=== PATIENT | male | born 1975 | race Caucasian/White ===

== ENCOUNTER 2023-03-05 10:29 | Emergency (ER) | payer BC ==
--- OUTSIDE RECORDS SUMMARY | 2023-03-05 10:32 | XMS REPORT | Continuity of Care Document ---
:1975 Author Organization [facility] t Address [address] [facility] [address] [place] [id number] Care Team Providers Name Role Phone KING GROSS Attending Clinician Unavailable Lab, Adc Fam Pob I Attending Clinician Unavailable King Gross PA-C Attending Clinician Doctor Unassigned, [place] Attending Clinician Unavailable Payers Payer Name Policy Type Policy Number Effective Date Expiration Date S [facility] [id number] 2019 00:00:00 Problems This patient has no known problems. Allergies, Adverse Reactions, Alerts Allergy Allergy Status Severity Reaction(s) Onset Inactive Treating Comm ents Source Name Type Date Date Clinician NO KNOWN Drug Active [facility] ALLERGIE Class ity of [facility] Social History Social Habit Start Date Stop Date Quantity Comments [facility] to [facility]2 [facility] Smoking Status Start Date Stop Date Source Unknown if ever [facility] Medications This patient has no known medications. Procedures This patient has no known procedures. Encounters Start End Encounter Admission Attending Care Care Encounter Source Date/Time Date/Time Type Type Clinicians Facility Department ID 2020-01-27 2020-01-27 Outpatient R RENATO [facility] [id number] Univers 18:20:00 18:20:00 KING [facility] 2020-01-27 2020-01-27 Laboratory Lab, [facility] Fam Pob I [facility] [id number] Univers 16:27:31 16:47:31 Only King Gross [id number] [id number] Blayne as Profcindaio [id number] Me dical nal [address] One 2020-01-27 2020-01-27 Letter Doctor KING [id number] Univers 00:00:00 00:00:00 (Out) Unassigned, LYDIA [id number] ity of [place] [facility] [id number] Blayne as [phone] [place] [id number] Branch Results This patient has no known results.
[2023-03-05] MEDS ORDERED: NA CHLORIDE 0.9% 1,000 ML ONE (11:05)
[2023-03-05] MEDS ORDERED: MORPHINE 4 MG/ML SYR ONE (11:05)
[2023-03-05] MEDS ORDERED: ONDANSETRON 4 MG/2 ML VIAL ONE (11:05)
[2023-03-05] MEDS ORDERED: FAMOTIDINE 20 MG/2 ML VIAL IV ONE (11:05)
[2023-03-05 11:31] LABS: RBC Red Blood Cell Count 5.37 M/uL (4.33-5.43)
[2023-03-05 11:32] LABS: Absolute Lymphocytes (CBC) 2.3 K/uL (0.7-4.9); MCV 87.5 fL (80-100); MPV 8.6 fL (7.6-11.3); Platelets 255 thou/uL (152-406)
[2023-03-05 11:38] LABS: Albumin 3.2 g/dL (3.4-5.0); Bilirubin Total 0.6 mg/dL (0.2-1.0); Protein, Total 7.7 g/dL (6.4-8.2)
--- NOTE | 2023-03-05 11:44 | RAD REPORT ---
EXAM DESCRIPTION: CT - Abdomen Pelvis W Contrast - 03/05/2023 11:17 am CLINICAL HISTORY: ABD PAIN COMPARISON: No comparisons TECHNIQUE: Thin cut axial CT imaging of the abdomen and pelvis was performed following intravenous a dministration of 100 mL Isovue 300. Multiplanar reformats were generated and reviewed. All CT scans are performed using dose optimization technique as appropriate and may include automated exposure control or mA/KV adjustment according to patient size. FINDINGS: No suspicious findings in the lung bases. The liver shows diffuse parenchymal hypoattenuation suggesting steatosis. Spleen, adrenal glands, and pancreas show no suspicious findings. Gallbladder and biliary tree are also without suspicious findi ng. Symmetric renal function is seen with no hydronephrosis or suspicious renal mass. No dilated bowel loops. Long segment of bowel wall thickening involving the distal ileum, less pronou nced or possibly sparing the terminal ileum, with adjacent fat stranding. Trace free fluid in the pel vis. No free air, fluid collections, or inflammatory stranding. No hernia, mass or bulky lymphadenopa thy. The urinary bladder is without significant finding. No suspicious bony findings. IMPRESSION: Long segment bowel wall thickening involving the distal ileum, etiologies could include infectious or inflammatory enteritis.
[2023-03-05] MEDS ORDERED: KETOROLAC 30 MG/ML INJ ONE (13:03)
[2023-03-05] MEDS ORDERED: CIPROFLOXACIN 400mg IV 400 MG/200 ML BAG IV ONE (13:04)
[2023-03-05] MEDS ORDERED: INSULIN REGULAR (HUMAN) 100 UNIT/ML ONE (13:04)
[2023-03-05] MEDS ORDERED: METRONIDAZOLE 500mg IVPB 500 MG/100 ML BAG IV ONE (13:04)
--- NOTE | 2023-03-05 13:08 | EDPHYS ---
Physician Documentation [facility] Name: Hermelindo Butcher Age: 47 yrs Sex: Male : 1975 Arrival Date: 03/05/2023 Time: 10:29 Bed 7 Private MD: ED Physician DanikaHermelindo HPI: 03/05 11:07 This 47 yrs old Male presents to ER via Ambulatory with complaints of Abdominal Pain. kb 11:07 Patient is a 47-year-old male with no medical history who presents for diffuse kb abdominal pain that that started 4 days ago. States he had diarrhea on the first day but has not had any since. Denies fever, nausea, vomiting. Reports tenderness to right lower quadrant.. Historical: - Allergies: 10:38 PENICILLINS; iw - Home Meds: 10:38 None [Active]; iw - PMHx: 10:38 None; iw - PSHx: 10:38 Appendectomy; iw - Immunization history:: Adult Immunizations . - Social history:: Smoking status: Patient reports the use of cigarette tobacco products. ROS: 11:04 Constitutional: Negative for fever, chills, and weight loss, kb 11:04 Abdomen/GI: Positive for abdominal pain, diarrhea, 11:04 All other systems are negative, Exam: 11:07 Head/Face: Normocephalic, atraumatic. ENT: Moist Mucous membranes Cardiovascular: kb Regular rate Respiratory: Respirations even and unlabored. No increased work of breathing. Talking in full sentences Abdomen/GI: Soft, non-tender. No distention Skin: Warm, dry with normal turgor. Normal color. MS/ Extremity: Pulses equal, no cyanosis. Neurovascular intact. Full, normal range of motion. Neuro: Awake and alert, GCS 15, oriented to person, place, time, and situation. Moves all extremities. Normal gait. 11:07 Constitutional: The patient appears alert, awake, uncomfortable, Vital Signs: 10:38 BP 172 / 98; Pulse 80; Resp 16; Temp 98.1; Pulse Ox 97% ; Weight 172.37 kg; Height 6 iw ft. 3 in. ; Pain 10/10; 11:43 BP 165 / 90; Pulse 81; Resp 18 S; Pulse Ox 99% on R/A; kc6 13:04 BP 163 / 90; Pulse 85; Resp 18 S; Pulse Ox 100% on R/A; kc6 14:00 BP 167 / 91; Pulse 71; Resp 18; Pulse Ox 99% on R/A; db 10:38 Body Mass Index 47.50 (172.37 kg, 190.5 cm) iw 10:38 Pain Scale: Adult iw MDM: 10:34 Patient medically screened. kb 12:21 Differential diagnosis: bowel obstruction, diverticulitis, gastritis, non-specific abd kb pain, pancreatitis, colitis. Data reviewed: vital signs, nurses notes. Counseling: I had a detailed discussion with the patient and/or guardian regarding the historical points, exam findings, and any diagnostic results supporting the discharge/admit diagnosis, lab results, radiology results, the need for outpatient follow up, a family practitioner, to return to the emergency department if symptoms worsen or persist or if there are any questions or concerns that arise at home. 13:09 ED course: Discussed results with pt. Pt denied any medical history, but now reports he kb does have "the diabetes that you take a pill for." . 03/05 10:46 Order name: CBC with Diff; Complete Time: 11:41 kb 03/05 10:46 Order name: CMP; Complete Time: 11:41 kb 03/05 10:46 Order name: Lipase; Complete Time: 11:41 kb 03/05 13:05 Order name: Glucose, Ancillary Testing; Complete Time: 13:07 EDMS 03/05 14:19 Order name: Glucose, Ancillary Testing; Complete Time: 14:20 EDMS 03/05 10:46 Order name: CT Abd/Pelvis - IV Contrast Only; Complete Time: 11:47 kb 03/05 10:46 Order name: IV Saline Lock; Complete Time: 11:09 kb 03/05 10:46 Order name: Labs collected and sent; Complete Time: 11:09 kb Administered Medications: 11:09 Drug: NS 0.9% IV 1000 ml IV at 1 bolus Per protocol; 1000 mL bolus Route: IV; Rate: 1 kc6 bolus; Site: right antecubital; 14:04 Follow up: Response: No adverse reaction; IV Status: Completed infusion; IV Intake: kc6 1000ml 11:09 Drug: Famotidine IVP 20 mg IVP once; dilute with 10 mL 0.9% NaCl; give over 2 minutes kc6 Route: IVP; Site: right antecubital; 11:43 Follow up: Response: No adverse reaction kc6 11:09 Drug: Ondansetron IVP 4 mg IVP once; over 2 minutes Route: IVP; Site: right antecubital;kc6 11:43 Follow up: Response: No adverse reaction kc6 11:09 Drug: morphine IVP or IV 4 mg IVP once over 4 mins Route: IVP; Infused Over: 4 mins; kc6 Site: right antecubital; 11:43 Follow up: Response: No adverse reaction; Pain is decreased; RASS: Alert and Calm (0) kc6 13:03 Drug: Insulin Regular Human IVP 5 units IVP once {Co-Signature: kc6 (Kamryn Blanc RN).} Route: IVP; Site: right antecubital; 14:04 Follow up: Response: No adverse reaction; Blood sugar is lowered kc6 13:03 Drug: Ciprofloxacin IVPB 400 mg 200 ml IVPB once over 60 mins Volume: 200 ml; Route: kc6 IVPB; Infused Over: 60 mins; Site: right antecubital; 14:00 Follow up: IV Status: Completed infusion db 13:03 Drug: metroNIDAZOLE IVPB 500 mg 100 ml IVPB at 200 ml/hr once over 30 mins Volume: 100 kc6 ml; Route: IVPB; Rate: 200 ml/hr; Infused Over: 30 mins; Site: right antecubital; 14:04 Follow up: Response: No adverse reaction; IV Status: Completed infusion; IV Intake: kc6 100ml 13:03 Drug: Ketorolac IVP 15 mg IVP once Route: IVP; Site: right antecubital; kc6 14:04 Follow up: Response: No adverse reaction; Pain is decreased kc6 Point of Care Testing: Blood Glucose: 14:07 Blood Glucose: 262 mg/dL; db Ranges: Critical Glucose Levels:Adult <50 mg/dl or >400 mg/dl <40 mg/dl or >180 mg/dl Disposition: 15:30 I was immediately available on-site in the Emergency Department for consultation in the wa3 care of the patient. Disposition Summary: 03/05/23 13:07 Discharge Ordered Notes: Location: Home kb Condition: Stable kb Diagnosis - Colitis kb - Diabetes mellitus due to underlying condition with hyperglycemia kb Followup: kb - With: Emergency Department - When: As needed - Reason: Worsening of condition Followup: kb - With: Private Physician - When: 2 - 3 days - Reason: Recheck today's complaints, Continuance of care, Re-evaluation by your physician Discharge Instructions: - Discharge Summary Sheet kb - Type 2 Diabetes Mellitus, Diagnosis, Adult, [id number] kb - Colitis kb Forms: - Work release form kb - Medication Reconciliation Form kb - Thank You Letter kb - Antibiotic Education kb - Prescription Opioid Use kb - Patient Portal Instructions kb - Leadership Thank You Letter kb Prescriptions: - Cipro 500 mg Oral Tablet - take 1 tablet ORAL route every 12 hours for 10 days; 20 tablet; Refills: 0, kb Product Selection Permitted - Flagyl 500 mg Oral Tablet - take 1 tablet ORAL route every 8 hours for 10 days; 30 tablet; Refills: 0, kb Product Selection Permitted - Ibuprofen 800 mg Oral Tablet - take 1 tablet ORAL route every 8 hours As needed take with food; 30 tablet; kb Refills: 0, Product Selection Permitted Signatures: Dispatcher [employer] Danielle Velásquez, UNIX ADMINISTRATOR-C UNIX ADMINISTRATOR-Ckb Michelle Bassett, RN RN iw Hermelindo Garnica, DO ms3 Kamryn Blanc RN RN kc6 Olya Muñoz RN RN db Kamryn Blanc RN kc6
--- NOTE | 2023-03-05 13:08 | ER ---
Nurse's Notes [facility] Name: Hermelindo Butcher Age: 47 yrs Sex: Male : 1975 Arrival Date: 03/05/2023 Time: 10:29 Bed 7 Private MD: Diagnosis: Colitis;Diabetes mellitus due to underlying condition with hyperglycemia Presentation: 03/05 10:37 Chief complaint: Patient states: upper abd pain that radiates to right groin since iw Saturday , sharp pain , +diarrhea , no vomiting. Coronavirus screen: Client presents with at least one sign or symptom that may indicate coronavirus-19. Ebola Screen: Patient negative for fever greater than or equal to 101.5 degrees Fahrenheit, and additional compatible Ebola Virus Disease symptoms Patient denies exposure to infectious person. Patient denies travel to an Ebola-affected area in the 21 days before illness onset. No symptoms or risks identified at this time. Initial Sepsis Screen: Does the patient meet any 2 criteria? No. Patient's initial sepsis screen is negative. Does the patient have a suspected source of infection? No. Patient's initial sepsis screen is negative. Risk Assessment: Do you want to hurt yourself or someone else? Patient reports no desire to harm self or others. Onset of symptoms was March 02, 2023. 10:37 Method Of Arrival: Ambulatory iw 10:37 Acuity: KAYODE 3 iw Historical: - Allergies: 10:38 PENICILLINS; iw - Home Meds: 10:38 None [Active]; iw - PMHx: 10:38 None; iw - PSHx: 10:38 Appendectomy; iw - Immunization history:: Adult Immunizations . - Social history:: Smoking status: Patient reports the use of cigarette tobacco products. Screenin:09 [facility] ED Fall Risk Assessment (Adult) History of falling in the last 3 months, kc6 including since admission No falls in past 3 months (0 pts) Confusion or Disorientation No (0 pts) Intoxicated or Sedated No (0 pts) Impaired Gait No (0 pts) Mobility Assist Device Used No (0 pt) Altered Elimination No (0 pt) Score/Fall Risk Level 0 - 2 = Low Risk. Abuse screen: Denies threats or abuse. Denies injuries from another. Nutritional screening: No deficits noted. Tuberculosis screening: No symptoms or risk factors identified. Assessment: 10:59 Reassessment: Patient appears in no apparent distress at this time. Patient and/or db family updated on plan of care and expected duration. Pain level reassessed. Patient is alert, oriented x 3, equal unlabored respirations, skin warm/dry/pink. General: Appears in no apparent distress. comfortable, Behavior is calm, cooperative. Pain: Complains of pain in abdomen. Neuro: Level of Consciousness is awake, alert, obeys commands, Oriented to person, place, time, situation. GI:. 11:43 Reassessment: Patient appears in no apparent distress at this time. No changes from kc6 previously documented assessment. Patient and/or family updated on plan of care and expected duration. Pain level reassessed. Patient is alert, oriented x 3, equal unlabored respirations, skin warm/dry/pink. 13:03 Reassessment: Patient appears in no apparent distress at this time. No changes from kc6 previously documented assessment. Patient and/or family updated on plan of care and expected duration. Pain level reassessed. Patient is alert, oriented x 3, equal unlabored respirations, skin warm/dry/pink. 13:10 Reassessment: d/c pending antibiotic completion. kc6 14:00 Reassessment: Patient appears in no apparent distress at this time. Patient and/or db family updated on plan of care and expected duration. Pain level reassessed. Patient is alert, oriented x 3, equal unlabored respirations, skin warm/dry/pink. Patient states feeling better. Patient states symptoms have improved. General: Appears in no apparent distress. comfortable, Behavior is calm, cooperative. Vital Signs: 10:38 BP 172 / 98; Pulse 80; Resp 16; Temp 98.1; Pulse Ox 97% ; Weight 172.37 kg; Height 6 iw ft. 3 in. ; Pain 10/10; 11:43 BP 165 / 90; Pulse 81; Resp 18 S; Pulse Ox 99% on R/A; kc6 13:04 BP 163 / 90; Pulse 85; Resp 18 S; Pulse Ox 100% on R/A; kc6 14:00 BP 167 / 91; Pulse 71; Resp 18; Pulse Ox 99% on R/A; db 10:38 Body Mass Index 47.50 (172.37 kg, 190.5 cm) iw 10:38 Pain Scale: Adult iw ED Course: 10:32 Patient arrived in ED. mr 10:34 Danielle Walsh, ADIS [facility]. kb 10:34 Hermelindo Garnica DO is Attending Physician. kb 10:38 Triage completed. iw 10:40 Arm band placed on. iw 10:47 Kamryn Blanc, RN is Primary Nurse. kc6 11:09 Inserted saline lock: 20 gauge in right antecubital area, using aseptic technique. kc6 Blood collected. Patient maintains SpO2 saturation greater than 95% on room air. 11:10 Patient has correct armband on for positive identification. Bed in low position. Call kc6 light in reach. Side rails up X 1. Client placed on continuous cardiac and pulse oximetry monitoring. NIBP monitoring applied. 11:18 CT Abd/Pelvis - IV Contrast Only In Process Unspecified. EDMS 14:21 Provided Education on: DISCHARGE. db 14:21 No provider procedures requiring assistance completed. IV discontinued, intact, db bleeding controlled, No redness/swelling at site. Administered Medications: 11:09 Drug: NS 0.9% IV 1000 ml IV at 1 bolus Per protocol; 1000 mL bolus Route: IV; Rate: 1 kc6 bolus; Site: right antecubital; 14:04 Follow up: Response: No adverse reaction; IV Status: Completed infusion; IV Intake: kc6 1000ml 11:09 Drug: Famotidine IVP 20 mg IVP once; dilute with 10 mL 0.9% NaCl; give over 2 minutes kc6 Route: IVP; Site: right antecubital; 11:43 Follow up: Response: No adverse reaction kc6 11:09 Drug: Ondansetron IVP 4 mg IVP once; over 2 minutes Route: IVP; Site: right antecubital;kc6 11:43 Follow up: Response: No adverse reaction kc6 11:09 Drug: morphine IVP or IV 4 mg IVP once over 4 mins Route: IVP; Infused Over: 4 mins; kc6 Site: right antecubital; 11:43 Follow up: Response: No adverse reaction; Pain is decreased; RASS: Alert and Calm (0) kc6 13:03 Drug: Insulin Regular Human IVP 5 units IVP once {Co-Signature: kc6 (Kamryn Blanc db RN).} Route: IVP; Site: right antecubital; 14:04 Follow up: Response: No adverse reaction; Blood sugar is lowered kc6 13:03 Drug: Ciprofloxacin IVPB 400 mg 200 ml IVPB once over 60 mins Volume: 200 ml; Route: kc6 IVPB; Infused Over: 60 mins; Site: right antecubital; 14:00 Follow up: IV Status: Completed infusion db 13:03 Drug: metroNIDAZOLE IVPB 500 mg 100 ml IVPB at 200 ml/hr once over 30 mins Volume: 100 kc6 ml; Route: IVPB; Rate: 200 ml/hr; Infused Over: 30 mins; Site: right antecubital; 14:04 Follow up: Response: No adverse reaction; IV Status: Completed infusion; IV Intake: kc6 100ml 13:03 Drug: Ketorolac IVP 15 mg IVP once Route: IVP; Site: right antecubital; kc6 14:04 Follow up: Response: No adverse reaction; Pain is decreased kc6 Medication: 14:21 VIS not applicable for this client. db Point of Care Testing: Blood Glucose: 14:07 Blood Glucose: 262 mg/dL; db Ranges: Intake: 14:04 IV: 1000ml; Total: 1000ml. kc6 14:04 IV: 100ml; Total: 1100ml. kc6 Outcome: 13:07 Discharge ordered by . eduarda 14:21 Discharged to home ambulatory, db 14:21 Condition: stable 14:21 Discharge instructions given to patient, Instructed on discharge instructions, follow up and referral plans. Prescriptions given X 3, 14:23 Patient left the ED. db Signatures: Dispatcher [employer] EDMI Danielle Walsh, ALLA-C DIRECTOR CLIENT SERVICES-Bere Bardales, [facility] mr Michelle Bassett, Kamryn Fernández RN, RN RN kc6 Olya Muñoz, Kamryn Alfaro RN, RN kc6
[2023-03-05 14:29] VITALS: TEMP 98.1
[2023-03-05 14:32] VITALS: BP 167/91; O2SAT 99
== END 2023-03-05 14:23 | disposition home or self-care (01) ==
LOC: ER 10:29
DX: K52.9 Noninfective gastroenteritis and colitis, unspecified (principal); E11.65 Type 2 diabetes mellitus with hyperglycemia; Z88.0 Allergy status to penicillin
CPT/HCPCS: 96365; 96361; 96368; 85025; 36415; 82947 ×2; 83690; 80053; 74177; 96375; 99285; Q9967; J1815; J2405; J0744; J7030

== ENCOUNTER 2024-03-23 20:08 | Inpatient (IN) | payer BC ==
--- OUTSIDE RECORDS SUMMARY | 2024-03-23 20:11 | XMS REPORT | Continuity of Care Document ---
Author Name Unknown Address [address] [facility] [address] [place] [address] [facility] Address [address] [place] [address] Care Team Providers Care Psychological Operations Specialist Name Role Phone KING AJ Attending Clinician Unavailable Lab, [facility] Pokarla I Attending Clinician Unavailab King Flores PA-C Attending Clinician [phone] Doctor Unassigned, [place] Attending Clinician U navailable Payers Payer Name Policy Type Policy Number Effective Date Expirati on Date Source [facility] [id number] 2019 00:00:00 Allergies, Adverse Reactions, Alerts Allergy Name Allergy Type Status Severity Reaction(s) Onset Date Inactive Date Treating Clinician Comments Source NO KNOWN ALLERGIE S Drug Class Active [facility] Social History Social Habit Start Date Stop Date Quantity Comments Source Sex Assigned At [facility] Exposure to SARS-CoV-2 (event) Yes [facility] Smoking Status Start Date Stop Date Source Unknown if ever smoked Unive [facility] Encounters Start Date/Time End Date/Time Encounter Type Admission Type Attending Clinicians Care Facility Care Department Encounter ID Source 2020-01-27 18:20:00 2020-01-27 18:20:00 Outpatient KING [facility] [id number] [facility] 2020-01-27 16:27:31 2020-01-27 16:47:31 Laboratory Only Lab, Adc Fam Pob I King Aj [facility] Office [facility] One [id number] [facility] 2020-01-27 00:00:00 2020-01-27 00:00:00 Letter (Out) Doctor Unassigned, [place] [facility] [id number] [facility]
[2024-03-23] MEDS ORDERED: MORPHINE 4 MG/ML SYR ONE (20:37)
[2024-03-23] MEDS ORDERED: MORPHINE 2 MG/ML SYR ONE (20:37)
[2024-03-23] MEDS ORDERED: KETOROLAC 30 MG/ML INJ ONE (20:37)
[2024-03-23] MEDS ORDERED: NA CHLORIDE 0.9% 2,000 ML ONE (20:38)
[2024-03-23] MEDS ORDERED: ONDANSETRON 4 MG/2 ML VIAL ONE (20:38)
[2024-03-23 21:50] LABS: Absolute Basophils 0.1 K/uL (0-0.5); Absolute Eosinophils 0.2 K/uL (0-0.5); Absolute Lymphocytes (CBC) 2.5 K/uL (0.7-4.9); Absolute Monocytes 0.8 K/uL (0.1-1.3); Absolute Neutrophil 6.8 K/uL (1.8-8.0); Basophils % 0.5 % (0-1.3); Eosinophils % 2.1 % (0-4.4); Hematocrit 45.1 % (39.6-49.0); Hemoglobin 15.1 g/dL (13.6-17.9); MCH 29.5 pg (27.0-35.0); MCHC 33.4 g/dL (32.0-36.0); MCV 88.4 fL (80-100); MPV 8.1 fL (7.6-11.3); Monocytes % 7.7 % (3.3-12.3); Neutrophils % 65.7 % (41.7-73.7); Nucleated Red Blood Cells % 0.1 % (0-0); Platelets 239 thou/uL (152-406); Red Cell Distribution Width 13.3 % (12.1-15.2)
[2024-03-23 22:07] LABS: Albumin/Globulin Ratio 0.9 (1.1-1.8); Anion Gap 8.7 mEq/L (5.0-15.0); Bilirubin Total 0.7 mg/dL (0.2-1.0); Globulin 3.4 g/dL (2.3-3.5); Potassium 3.7 mEq/L (3.5-5.1); Protein, Total 6.4 g/dL (6.4-8.2)
[2024-03-23 22:11] LABS: Troponin High Sensitivity 11.6 pg/mL (<58.9)
--- NOTE | 2024-03-24 00:18 | RAD REPORT ---
EXAM DESCRIPTION: Chest Abdomen Pelvis W Cont CLINICAL HISTORY: 48 years Male, ABDOMINAL DISTENTION TECHNIQUE: Helical CT axial images are obtained from the thoracic inlet to the pubic symphysis with I V contrast. No oral contrast was administered. Multiplanar reconstruction. This exam was performed according to our departmental dose-optimization program, which includes automated exposure control, adjustment of the mA and/or kV according to patient size and/or use of iterative reconstruction technique. COMPARISON: CT abdomen pelvis 03/05/2023 FINDINGS: CHEST: LUNGS: A 6 mm calcified granuloma right apex. A 3 mm calcified granuloma left lower lobe. No consol idation or atelectasis. No pulmonary masses or suspicious nodules. MEDIASTINUM: Calcified mediastinal and right hilar lymph nodes. No abnormally enlarged mediastinal or hilar lymph nodes. PLEURA: No pleural effusion. No pneumothorax. CARDIAC: Normal heart size. No pericardial effusion. VASCULAR: Thoracic aorta is normal in caliber without aneurysm. The pulmonary vasculature demonstrate s no significant dilatation. CHEST WALL: Chest wall is intact. No abnormal axillary lymphadenopathy. ABDOMEN/PELVIS: LIVER: Hepatomegaly. Mild diffuse decreased attenuation. No focal masses. Mild periportal lymphaden opathy, stable. HEPATOBILIARY: Normal-appearing gallbladder. No intra- or extrahepatic ductal dilatation. SPLEEN: Normal size. PANCREAS: Normal size and contour. No focal mass. ADRENAL GLANDS: Normal size. No adrenal masses. KIDNEYS: Bilateral kidneys are normal in size without obstructing calculi or hydronephrosis. No nep hrolithiasis. No significant cysts are present. BOWEL AND MESENTERY: Moderate wall thickening of the terminal ileum and distal ileal loops with moder ate perienteric and perimesenteric fat stranding. Trace ascites. Remainder of small bowel is within normal limits. No large bowel dilatation. No colonic diverticulosis. The appendix is not identifie d. No abnormal mesenteric lymphadenopathy. No pneumoperitoneum. RETROPERITONEUM: Normal caliber abdominal aorta without aneurysm. No abnormal retroperitoneal lymphad enopathy. PELVIS: Urinary bladder is unremarkable. Normal-sized prostate gland. ABDOMINAL WALL: The abdominal wall is intact. BONES: No suspicious osseous lytic or blastic lesions seen. IMPRESSION: 1. Moderate wall thickening of the terminal ileum and distal ileal loops with moderate perienteric fat stranding. Trace ascites. Findings are consistent with an infectious or inflammatory enteritis. Rule out Crohn's disease. Patient with similar presentation 03/05/2023. 2. Hepatomegaly with mild hepatic steatosis. 3. Mild periportal lymphadenopathy, stable. 4. No acute cardiopulmonary disease. 5. Old granulomatous disease. Electronically signed by: Jorge Cordova MD 03/24/2024 12:04 AM [facility] N Due to temporary technical issues with the PACS/Ketto reporting system, reports are being mel d by the in-house radiologist without review as a courtesy to ensure prompt reporting the interpreting radiologist is fully responsible for the content of the report. Transcribed Date/Time: 03/24/2024 12:18 AM
--- NOTE | 2024-03-24 01:08 | ER ---
Nurse's Notes [facility] Name: Hermelindo Butcher Age: 48 yrs Sex: Male : 1975 Arrival Date: 03/23/2024 Time: 20:08 Bed 6 Private MD: Diagnosis: Acute enteritis, acute terminal ileitis, diffuse abdominal pain Presentation: 03/23 20:30 Chief complaint: Patient states: I have this sharp lower abd pain that radiates up jhaveri bm8 through me since saturday. Coronavirus screen: At this time, the client does not indicate any symptoms associated with coronavirus-19. Ebola Screen: Patient negative for fever greater than or equal to 101.5 degrees Fahrenheit, and additional compatible Ebola Virus Disease symptoms Patient denies exposure to infectious person. Patient denies travel to an Ebola-affected area in the 21 days before illness onset. No symptoms or risks identified at this time. Initial Sepsis Screen: Does the patient meet any 2 criteria? No. Patient's initial sepsis screen is negative. Does the patient have a suspected source of infection? No. Patient's initial sepsis screen is negative. Risk Assessment: Do you want to hurt yourself or someone else? Patient reports no desire to harm self or others. Onset of symptoms was March 16, 2024. 20:30 Method Of Arrival: Ambulatory bm8 20:30 Acuity: KAYODE 3 bm8 Triage Assessment: 20:32 General: Appears distressed, uncomfortable, Behavior is calm, cooperative, appropriate bm8 for age. Pain: Complains of pain in suprapubic area Pain radiates to abdomen Pain currently is 10 out of 10 on a pain scale. Quality of pain is described as sharp, Pain began 1 week. EENT: No deficits noted. No signs and/or symptoms were reported regarding the EENT system. Neuro: No deficits noted. Level of Consciousness is awake, alert, obeys commands, Oriented to person, place, time, situation, Appropriate for age. Cardiovascular: Denies chest pain, Heart tones S1 S2 present Capillary refill < 3 seconds in bilateral fingers Patient's skin is warm and dry. Respiratory: Airway is patent Trachea midline Respiratory effort is even, unlabored, Respiratory pattern is regular, symmetrical, Breath sounds are clear bilaterally. GI: Abdomen is round non-distended, Bowel sounds present X 4 quads. Abdomen is tender to palpation in suprapubic area Reports lower abdominal pain, nausea, Pain is 10 out of 10 on a pain scale. : No signs and/or symptoms were reported regarding the genitourinary system. Derm: No signs and/or symptoms reported regarding the dermatologic system. Musculoskeletal: No signs and/or symptoms reported regarding the musculoskeletal system. Historical: - Allergies: 20:32 PENICILLINS; bm8 - Home Meds: 20:32 None [Active]; bm8 - PMHx: 20:32 None; bm8 - PSHx: 20:32 Appendectomy; bm8 - Immunization history:: Adult Immunizations up to date. - Infectious Disease History:: Denies. - Social history:: Smoking status: Patient reports the use of cigarette tobacco products, Patient uses alcohol, Patient/guardian denies using street drugs. - Family history:: not pertinent. Screenin/17 07:15 [facility] ED Fall Risk Assessment (Adult) History of falling in the last 3 months, ko1 including since admission No falls in past 3 months (0 pts) Confusion or Disorientation No (0 pts) Intoxicated or Sedated No (0 pts) Impaired Gait No (0 pts) Mobility Assist Device Used No (0 pt) Altered Elimination No (0 pt) Score/Fall Risk Level 0 - 2 = Low Risk Oriented to surroundings, Maintained a safe environment, Educated pt \T\ family on fall prevention, incl call for assistance when getting out of bed, Assessed \T\ reinforced patient's understanding of fall precautions, Provided non-skid footwear, Hourly rounding (assess needs \T\ fall precautionary measures) done. Abuse screen: Denies threats or abuse. Denies injuries from another. Nutritional screening: No deficits noted. Tuberculosis screening: No symptoms or risk factors identified. Assessment: 03/23 20:45 Reassessment: Patient and/or family updated on plan of care and expected duration. Pain br2 level reassessed. Patient is alert, oriented x 3, equal unlabored respirations, skin warm/dry/pink. General: Appears in no apparent distress. comfortable, Behavior is calm, cooperative. Pain: Complains of pain in right lower quadrant and left lower quadrant Pain does not radiate. Pain at worst was 10 out of 10 on a pain scale. Neuro: Level of Consciousness is awake, alert, Oriented to person, place, time, situation. Cardiovascular: Capillary refill < 3 seconds. Respiratory: Airway is patent Respiratory effort is even, unlabored, Respiratory pattern is regular, symmetrical. GI: Reports lower abdominal pain, Pain is 10 out of 10 on a pain scale. : No signs and/or symptoms were reported regarding the genitourinary system. EENT: No signs and/or symptoms were reported regarding the EENT system. Derm: No signs and/or symptoms reported regarding the dermatologic system. Musculoskeletal: No signs and/or symptoms reported regarding the musculoskeletal system. 21:13 Reassessment: Patient and/or family updated on plan of care and expected duration. Pain br2 level reassessed. Patient is alert, oriented x 3, equal unlabored respirations, skin warm/dry/pink. Patient denies pain at this time. Patient states feeling better. Patient states symptoms have improved. 22:48 Reassessment: Patient and/or family updated on plan of care and expected duration. Pain br2 level reassessed. Patient is alert, oriented x 3, equal unlabored respirations, skin warm/dry/pink. Patient denies pain at this time. Patient states feeling better. Patient states symptoms have improved. 23:40 Reassessment: No changes from previously documented assessment. Patient and/or family br2 updated on plan of care and expected duration. Pain level reassessed. Patient is alert, oriented x 3, equal unlabored respirations, skin warm/dry/pink. Patient denies pain at this time. 03/24 00:36 Reassessment: No changes from previously documented assessment. Patient and/or family br2 updated on plan of care and expected duration. Pain level reassessed. Patient is alert, oriented x 3, equal unlabored respirations, skin warm/dry/pink. Patient denies pain at this time. 02:55 Reassessment: No changes from previously documented assessment. Patient and/or family br2 updated on plan of care and expected duration. Pain level reassessed. Patient is alert, oriented x 3, equal unlabored respirations, skin warm/dry/pink. Patient states feeling better. Patient states symptoms have improved. Vital Signs: 03/23 20:30 BP 186 / 106; Pulse 89; Resp 18; Temp 98.7; Pulse Ox 97% ; Weight 158.76 kg; Height 6 bm8 ft. 3 in. ; Pain 10/10; 21:13 BP 162 / 91; Pulse 98; Resp 18; Pulse Ox 97% on R/A; Pain 0/10; br2 22:39 BP 145 / 70; Pulse 85; Resp 18 S; Pulse Ox 99% on R/A; Pain 0/10; br2 03/24 00:36 BP 171 / 81; Pulse 73; Resp 18; Pulse Ox 96% on R/A; br2 02:55 BP 121 / 60; Pulse 67; Resp 18; Pulse Ox 93% on R/A; br2 03:30 BP 121 / 64; Pulse 63; Resp 18; Pulse Ox 96% ; br2 04:30 BP 141 / 88; Pulse 58; Resp 18; Pulse Ox 95% on R/A; br2 05:48 BP 124 / 79; Pulse 61; Resp 16 S; Pulse Ox 94% on R/A; br2 03/23 20:30 Body Mass Index 43.75 (158.76 kg, 190.5 cm) bm8 03/23 20:30 Pain Scale: Adult bm8 21:13 Pain Scale: Adult br2 22:39 Pain Scale: Adult br2 Cesario Coma Score: 03/25 03:08 Eye Response: spontaneous(4). Motor Response: obeys commands(6). Verbal Response: sp4 oriented(5). Total: 15. ED Course: 03/23 20:09 Patient arrived in ED. im 20:18 John Santiago MD is Attending Physician. sp4 20:30 Eric Rogers, RN is Primary Nurse. bm8 20:32 Triage completed. bm8 20:32 Arm band placed on right wrist. bm8 20:35 Inserted saline lock: 20 gauge in right antecubital area, using aseptic technique. br2 Blood collected. Flushed with 10 mL NS. 21:08 BNP Sent. br2 21:08 Troponin High Sensitivity Sent. br2 21:08 Lipase Sent. br2 21:08 CBC with Diff Sent. br2 21:09 CMP Sent. br2 22:43 CT Chest, Abdomen, Pelvis - W/Contrast In Process Unspecified. EDMS 03/24 01:07 Shaun Claudio MD is Hospitalizing Provider. sp4 06:55 Hemoglobin A1c Sent. br2 07:15 Patient has correct armband on for positive identification. Allergy band placed. Bed in ko1 low position. Call light in reach. Side rails up X2. Provided Education on: admit. 07:15 No provider procedures requiring assistance completed. Patient admitted, IV remains in ko1 place. Administered Medications: 03/23 20:43 Drug: morphine IVP or IV 6 mg IVP once over 4 mins Route: IVP; Infused Over: 4 mins; bm8 Site: right antecubital; 21:15 Follow up: Response: No adverse reaction br2 20:43 Drug: Ondansetron IVP 8 mg IVP once; over 2 minutes Route: IVP; Site: right antecubital;bm8 21:15 Follow up: Response: No adverse reaction br2 20:43 Drug: Ketorolac IVP 30 mg IVP once Route: IVP; Site: right antecubital; bm8 21:15 Follow up: Response: No adverse reaction br2 20:43 Drug: NS 0.9% IV 1000 ml IV at 1 bolus Per protocol; to be given as a bolus over 60 bm8 minutes Route: IV; Rate: 1 bolus; Site: right antecubital; 21:45 Follow up: Response: No adverse reaction; IV Status: Completed infusion; IV Intake: br2 1000ml 20:43 Drug: NS 0.9% IV 1000 ml IV at 125 bolus Per protocol; to be given as a bolus over 60 bm8 minutes Route: IV; Rate: 125 bolus; Site: right antecubital; 21:45 Follow up: Response: No adverse reaction; IV Status: Completed infusion; IV Intake: br2 1000ml 03/24 02:02 Drug: MethylPrednisoLONE IVP 125 mg IVP once Route: IVP; Site: right antecubital; br2 02:30 Follow up: Response: No adverse reaction br2 02:02 Drug: Rocephin - Rocephin (cefTRIAXone) IVPB 1 grams IVPB once over 30 mins; (mix in 50 br2 mL NS) Route: IVPB; Infused Over: 30 mins; Site: right antecubital; 02:30 Follow up: IV Status: Completed infusion; IV Intake: 50ml br2 02:02 Drug: metroNIDAZOLE IVPB 500 mg 100 ml IVPB at 200 ml/hr once over 30 mins Volume: 100 br2 ml; Route: IVPB; Rate: 200 ml/hr; Infused Over: 30 mins; Site: right antecubital; 02:30 Follow up: Response: No adverse reaction; IV Status: Completed infusion; IV Intake: br2 100ml 02:03 Drug: morphine IVP or IV 4 mg IVP once over 4 mins Route: IVP; Infused Over: 4 mins; br2 Site: right antecubital; 02:30 Follow up: Response: No adverse reaction br2 02:03 Drug: metoCLOPramide IVP 10 mg IVP once; over 1 to 2 minutes Route: IVP; Site: right br2 antecubital; 02:30 Follow up: Response: No adverse reaction br2 07:03 Drug: morphine IVP or IV 6 mg IVP once over 4 mins Route: IVP; Infused Over: 4 mins; br2 Site: right antecubital; 07:30 Follow up: Response: No adverse reaction; Pain is decreased; RASS: Alert and Calm (0) kc6 Medication: 11:07 VIS not applicable for this client. ko1 Intake: 03/23 21:45 IV: 1000ml; Total: 1000ml. br2 21:45 IV: 1000ml; Total: 2000ml. br2 03/24 02:30 IV: 50ml; Total: 2050ml. br2 02:30 IV: 100ml; Total: 2150ml. br2 Outcome: 01:08 Decision to Hospitalize by Provider. sp4 12:15 Patient left the ED. ko1 Signatures: Dispatcher [employer] Kamryn Ricketts RN RN [id number] Vivian Potts RN RN ko1 John Santiago MD MD sp4 Dorothy Trejo Brad, RN RN [id number] Zahira Salazar RN RN br2 Corrections: (The following items were deleted from the chart) 05:56 04:30 BP 121 / 64; Pulse 63bpm; Resp 18bpm; Pulse Ox 96%; br2 br2
--- NOTE | 2024-03-24 01:09 | EDPHYS ---
Physician Documentation [facility] Name: Hermelindo Butcher Age: 48 yrs Sex: Male : 1975 Arrival Date: 03/23/2024 Time: 20:08 Bed 6 Private MD: ED Physician John Santiago HPI: 03/23 20:18 This 48 yrs old Male presents to ER via Unassigned with complaints of sp4 Abdominal Pain - Tenderness, Testicular Pain. 03/25 03:08 48-year-old male presents with complaint of lower abdominal pain which is moderate to sp4 severe. Patient actually denied testicular pain. Historical: - Allergies: 03/23 20:32 PENICILLINS; bm8 - Home Meds: 20:32 None [Active]; bm8 - PMHx: 20:32 None; bm8 - PSHx: 20:32 Appendectomy; bm8 - Immunization history:: Adult Immunizations up to date. - Infectious Disease History:: Denies. - Social history:: Smoking status: Patient reports the use of cigarette tobacco products, Patient uses alcohol, Patient/guardian denies using street drugs. - Family history:: not pertinent. ROS: 03/25 03:08 Constitutional: Negative for fever, chills, and weight loss, positive lower abdominal sp4 pain All other systems are negative, Exam: 03:08 Constitutional: This is a well developed, well nourished patient who is awake, alert, sp4 and in no acute distress. Head/Face: Normocephalic, atraumatic. Eyes: Pupils equal round and reactive to light, extra-ocular motions intact. Lids and lashes normal. Conjunctiva and sclera are not injected. Cornea within normal limits. Periorbital areas with no swelling, redness, or edema. ENT: Nares patent. No nasal discharge, no septal abnormalities noted. Tympanic membranes are normal and external auditory canals are clear. Oropharynx with no redness, swelling, or masses, exudates, or evidence of obstruction, uvula midline. Mucous membranes moist. Neck: Trachea midline, no thyromegaly or masses palpated, and no cervical lymphadenopathy. Supple, full range of motion without nuchal rigidity, or vertebral point tenderness. Chest/axilla: Normal chest wall appearance and motion. Nontender with no deformity. No lesions are appreciated. Cardiovascular: Regular rate and rhythm with a normal S1 and S2. No gallops, murmurs, or rubs. Normal PMI, no JVD. No pulse deficits. Respiratory: Lungs have equal breath sounds bilaterally, clear to auscultation and percussion. No rales, rhonchi or wheezes noted. No increased work of breathing, no retractions or nasal flaring. Abdomen/GI: Soft, with normal bowel sounds. No distension or tympany. No guarding or rebound. Positive lower abdominal tenderness Back: No spinal tenderness. No costovertebral tenderness. Skin: Warm, dry with normal turgor. Normal color with no rashes, no lesions, and no evidence of cellulitis. MS/ Extremity: Pulses equal, no cyanosis. Neurovascular intact. Full, normal range of motion. Neuro: Awake and alert, GCS 15, oriented to person, place, time, and situation. Cranial nerves II-XII grossly intact. Motor strength 5/5 in all extremities. Sensory grossly intact. Psych: Awake, alert, with orientation to person, place and time. Behavior, mood, and affect are within normal limits Vital Signs: 03/23 20:30 BP 186 / 106; Pulse 89; Resp 18; Temp 98.7; Pulse Ox 97% ; Weight 158.76 kg; Height 6 bm8 ft. 3 in. ; Pain 10/10; 21:13 BP 162 / 91; Pulse 98; Resp 18; Pulse Ox 97% on R/A; Pain 0/10; br2 22:39 BP 145 / 70; Pulse 85; Resp 18 S; Pulse Ox 99% on R/A; Pain 0/10; br2 03/24 00:36 BP 171 / 81; Pulse 73; Resp 18; Pulse Ox 96% on R/A; br2 02:55 BP 121 / 60; Pulse 67; Resp 18; Pulse Ox 93% on R/A; br2 03:30 BP 121 / 64; Pulse 63; Resp 18; Pulse Ox 96% ; br2 04:30 BP 141 / 88; Pulse 58; Resp 18; Pulse Ox 95% on R/A; br2 05:48 BP 124 / 79; Pulse 61; Resp 16 S; Pulse Ox 94% on R/A; br2 03/23 20:30 Body Mass Index 43.75 (158.76 kg, 190.5 cm) bm8 03/23 20:30 Pain Scale: Adult bm8 21:13 Pain Scale: Adult br2 22:39 Pain Scale: Adult br2 [place] Coma Score: 03/25 03:08 Eye Response: spontaneous(4). Motor Response: obeys commands(6). Verbal Response: sp4 oriented(5). Total: 15. MDM: 03/23 20:19 Medical Screening Exam initiated sp4 03/24 00:52 ED course: EXAM DESCRIPTION: Chest Abdomen Pelvis W Cont CLINICAL HISTORY: 48 years sp4 Male, ABDOMINAL DISTENTION TECHNIQUE: Helical CT axial images are obtained from the thoracic inlet to the pubic symphysis with IV contrast. No oral contrast was administered. Multiplanar reconstruction. This exam was performed according to our departmental dose-optimization program, which includes automated exposure control, adjustment of the mA and/or kV according to patient size and/or use of iterative reconstruction technique. COMPARISON: CT abdomen pelvis 03/05/2023 FINDINGS: CHEST: LUNGS: A 6 mm calcified granuloma right apex. A 3 mm calcified granuloma left lower lobe. No consolidation or atelectasis. No pulmonary masses or suspicious nodules. MEDIASTINUM: Calcified mediastinal and right hilar lymph nodes. No abnormally enlarged mediastinal or hilar lymph nodes. PLEURA: No pleural effusion. No pneumothorax. CARDIAC: Normal heart size. No pericardial effusion. VASCULAR: Thoracic aorta is normal in caliber without aneurysm. The pulmonary vasculature demonstrates no significant dilatation. CHEST WALL: Chest wall is intact. No abnormal axillary lymphadenopathy. ABDOMEN/PELVIS: LIVER: Hepatomegaly. Mild diffuse decreased attenuation. No focal masses. Mild periportal lymphadenopathy, stable. HEPATOBILIARY: Normal-appearing gallbladder. No intra- or extrahepatic ductal dilatation. SPLEEN: Normal size. PANCREAS: Normal size and contour. No focal mass. ADRENAL GLANDS: Normal size. No adrenal masses. KIDNEYS: Bilateral kidneys are normal in size without obstructing calculi or hydronephrosis. No nephrolithiasis. No significant cysts are present. BOWEL AND MESENTERY: Moderate wall thickening of the terminal ileum and distal ileal loops with moderate perienteric and perimesenteric fat stranding. Trace ascites. Remainder of small bowel is within normal limits. No large bowel dilatation. No colonic diverticulosis. The appendix is not identified. No abnormal mesenteric lymphadenopathy. No pneumoperitoneum. RETROPERITONEUM:Normal caliber abdominal aorta without aneurysm. No abnormal retroperitoneal lymphadenopathy. PELVIS: Urinary bladder is unremarkable. Normal-sized prostate gland. ABDOMINAL WALL: The abdominal wall is intact. BONES: No suspicious osseous lytic or blastic lesions seen. IMPRESSION: 1. Moderate wall thickening of the terminal ileum and distal ileal loops with moderate perienteric fat stranding. Trace ascites. Findings are consistent with an infectious or inflammatory enteritis. Rule out Crohn's disease. Patient with similar presentation 03/05/2023. 2. Hepatomegaly with mild hepatic steatosis. 3. Mild periportal lymphadenopathy, stable. 4. No acute cardiopulmonary disease. 5. Old granulomatous disease. Electronically signed by: Jorge Cordova MD 03/24/2024 12:04 . 03/25 03:08 Differential diagnosis: nonspecific abdominal pain, appendicitis, urinary retention, sp4 prostatitis, urethritis. Data reviewed: vital signs, nurses notes, old medical records, lab test result(s), radiologic studies, CT scan. 03:11 ED course: CLINICAL HISTORY: 48 years Male, ABDOMINAL DISTENTION TECHNIQUE: Helical CT sp4 axial images are obtained from the thoracic inlet to the pubic symphysis with IV contrast. No oral contrast was administered. Multiplanar reconstruction. This exam was performed according to our departmental dose-optimization program, which includes automated exposure control, adjustment of the mA and/or kV according to patient size and/or use of iterative reconstruction technique. COMPARISON: CT abdomen pelvis 03/05/2023 FINDINGS: CHEST: LUNGS: A 6 mm calcified granuloma right apex. A 3 mm calcified granuloma left lower lobe. No consolidation or atelectasis. No pulmonary masses or suspicious nodules. MEDIASTINUM: Calcified mediastinal and right hilar lymph nodes. No abnormally enlarged mediastinal or hilar lymph nodes. PLEURA: No pleural effusion. No pneumothorax. CARDIAC: Normal heart size. No pericardial effusion. VASCULAR: Thoracic aorta is normal in caliber without aneurysm. The pulmonary vasculature demonstrates no significant dilatation. CHEST WALL: Chest wall is intact. No abnormal axillary lymphadenopathy. ABDOMEN/PELVIS: LIVER: Hepatomegaly. Mild diffuse decreased attenuation. No focal masses. Mild periportal lymphadenopathy, stable. HEPATOBILIARY: Normal-appearing gallbladder. No intra- or extrahepatic ductal dilatation. SPLEEN: Normal size. PANCREAS: Normal size and contour. No focal mass. ADRENAL GLANDS: Normal size. No adrenal masses. KIDNEYS: Bilateral kidneys are normal in size without obstructing calculi or hydronephrosis. No nephrolithiasis. No significant cysts are present. BOWEL AND MESENTERY: Moderate wall thickening of the terminal ileum and distal ileal loops with moderate perienteric and perimesenteric fat stranding. Trace ascites. Remainder of small bowel is within normal limits. No large bowel dilatation. No colonic diverticulosis. The appendix is not identified. No abnormal mesenteric lymphadenopathy. No pneumoperitoneum. RETROPERITONEUM:Normal caliber abdominal aorta without aneurysm. No abnormal retroperitoneal lymphadenopathy. PELVIS: Urinary bladder is unremarkable. Normal-sized prostate gland. ABDOMINAL WALL: The abdominal wall is intact. BONES: No suspicious osseous lytic or blastic lesions seen. IMPRESSION: 1. Moderate wall thickening of the terminal ileum and distal ileal loops with moderate perienteric fat stranding. Trace ascites. Findings are consistent with an infectious or inflammatory enteritis. Rule out Crohn's disease. Patient with similar presentation 03/05/2023. 2. Hepatomegaly with mild hepatic steatosis. 3. Mild periportal lymphadenopathy, stable. 4. No acute cardiopulmonary disease. 5. Old granulomatous disease. Electronically signed by: Jorge Cordova MD 03/24/2024 12:04 AM [facility] . 03/23 20:19 Order name: CBC with Diff; Complete Time: 00:01 [facility] 03/23 20:19 Order name: CMP; Complete Time: 00:01 [facility] 03/23 20:19 Order name: Urinalysis w/ reflexes [facility] 03/23 20:29 Order name: Lipase; Complete Time: 00:01 [facility] 03/23 20:30 Order name: Troponin High Sensitivity; Complete Time: 00:01 [facility] 03/23 20:30 Order name: BNP; Complete Time: 00:01 [facility] 03/24 01:32 Order name: Urinalysis w/ reflexes [facility] 03/24 01:32 Order name: CBC with Automated Diff [facility] 03/24 01:32 Order name: CBC with Automated Diff [facility] 03/24 01:32 Order name: Comprehensive Metabolic Panel [facility] 03/24 01:32 Order name: Comprehensive Metabolic Panel [facility] 03/24 01:34 Order name: C-Reactive Protein [facility] 03/24 01:34 Order name: Hemoglobin A1c [facility] 03/24 08:38 Order name: Glucose, Ancillary Testing [facility] 03/23 20:30 Order name: CT Chest, Abdomen, Pelvis - W/Contrast [facility] 03/23 20:19 Order name: IV Saline Lock; Complete Time: 20:44 sp4 03/23 20:19 Order name: Labs collected and sent; Complete Time: 20:44 sp4 Administered Medications: 03/23 20:43 Drug: morphine IVP or IV 6 mg IVP once over 4 mins Route: IVP; Infused Over: 4 mins; bm8 Site: right antecubital; 21:15 Follow up: Response: No adverse reaction br2 20:43 Drug: Ondansetron IVP 8 mg IVP once; over 2 minutes Route: IVP; Site: right antecubital;bm8 21:15 Follow up: Response: No adverse reaction br2 20:43 Drug: Ketorolac IVP 30 mg IVP once Route: IVP; Site: right antecubital; bm8 21:15 Follow up: Response: No adverse reaction br2 20:43 Drug: NS 0.9% IV 1000 ml IV at 1 bolus Per protocol; to be given as a bolus over 60 bm8 minutes Route: IV; Rate: 1 bolus; Site: right antecubital; 21:45 Follow up: Response: No adverse reaction; IV Status: Completed infusion; IV Intake: br2 1000ml 20:43 Drug: NS 0.9% IV 1000 ml IV at 125 bolus Per protocol; to be given as a bolus over 60 bm8 minutes Route: IV; Rate: 125 bolus; Site: right antecubital; 21:45 Follow up: Response: No adverse reaction; IV Status: Completed infusion; IV Intake: br2 1000ml 03/24 02:02 Drug: MethylPrednisoLONE IVP 125 mg IVP once Route: IVP; Site: right antecubital; br2 02:30 Follow up: Response: No adverse reaction br2 02:02 Drug: Rocephin - Rocephin (cefTRIAXone) IVPB 1 grams IVPB once over 30 mins; (mix in 50 br2 mL NS) Route: IVPB; Infused Over: 30 mins; Site: right antecubital; 02:30 Follow up: IV Status: Completed infusion; IV Intake: 50ml br2 02:02 Drug: metroNIDAZOLE IVPB 500 mg 100 ml IVPB at 200 ml/hr once over 30 mins Volume: 100 br2 ml; Route: IVPB; Rate: 200 ml/hr; Infused Over: 30 mins; Site: right antecubital; 02:30 Follow up: Response: No adverse reaction; IV Status: Completed infusion; IV Intake: br2 100ml 02:03 Drug: morphine IVP or IV 4 mg IVP once over 4 mins Route: IVP; Infused Over: 4 mins; br2 Site: right antecubital; 02:30 Follow up: Response: No adverse reaction br2 02:03 Drug: metoCLOPramide IVP 10 mg IVP once; over 1 to 2 minutes Route: IVP; Site: right br2 antecubital; 02:30 Follow up: Response: No adverse reaction br2 07:03 Drug: morphine IVP or IV 6 mg IVP once over 4 mins Route: IVP; Infused Over: 4 mins; br2 Site: right antecubital; 07:30 Follow up: Response: No adverse reaction; Pain is decreased; RASS: Alert and Calm (0) kc6 Disposition: 03/25 03:11 Chart complete. sp4 Disposition Summary: 03/24/24 01:08 Hospitalization Ordered Notes: Hospitalization Status: Inpatient Admission sp4 Provider: Shaun Claudio sp4 Condition: Stable sp4 Problem: new sp4 Symptoms: have improved sp4 Bed/Room Type: Standard sp4 Location: Telemetry/MedSurg (Inpatient)(03/24/24 11:03) bd Room Assignment: 208(03/24/24 11:03) bd Diagnosis - Acute enteritis, acute terminal ileitis, diffuse abdominal pain sp4 Forms: - Medication Reconciliation Form sp4 - SBAR form sp4 - Leadership Thank You Letter sp4 Signatures: Dispatcher [employer] EDMS Kaylee Walsh Rebecca rv1 John Santiago MD MD sp4 Eric Rogers, RN RN bm8 Zahira Salazar RN RN br2 Kamryn Blanc RN kc6 Corrections: (The following items were deleted from the chart) 03/24 02:36 01:08 Telemetry/MedSurg (Inpatient) sp4 rv1 02:36 01:08 sp4 rv1 03:08 03:08 CPAP ([employer] Only)+[id number] ordered. EDMS EDMS 11:03 02:36 [facility] ER HOLD rv1 bd 11:03 02:36 ERHOLD- rv1 bd
[2024-03-24] MEDS ORDERED: ACETAMINOPHEN 325 MG TABLET PO PRN (01:27)
[2024-03-24] MEDS ORDERED: ONDANSETRON 4 MG/2 ML VIAL IV PRN (01:27)
--- NOTE | 2024-03-24 01:27 | P.HP ---
Certification for Inpatient Patient admitted to: Inpatient With expected LOS: >2 Midnights Practitioner: I am a practitioner with admitting privileges, knowledge of patient current condition, hospital course, and medical plan of care. Services: Services provided to patient in accordance with Admission requirements found in Title 42 Section 412.3 of the Code of Federal Regulations Patient History Date of Service: 03/24/24 Reason for admission: Abdminal Pain , Terminal Ileitis History of Present Illness: 48 yrs old Male with no significant past medical history other than obesity and sleep apnea who was brought to ER with abdominal pain. The pain has been going on for the last 4 days and has been progressively getting worse. Denies any fever or chills. No nausea vomiting or diarrhea. Pain started insidiously. Pain is sharp, 6 out of 10 in severity, radiating to the testicles. No sick contacts. No recent travel. Patient had a history of appendectomy.As the betsey ent continues to have abdominal pain he was brought to ER . Patient was assessed in the ER and had a CT which was suggestive of terminal ileitis and was admitted for further management. Home medications list reviewed: Yes - Past Medical/Surgical History Past Medical History: Reviewed- Non-Contributory Past Surgical History: Reviewed- Non-Contributory - Family History Family History: Reviewed- Non-Contributory - Social History Smoking Status: Never smoker Review of Systems 10-point ROS is otherwise unremarkable Physical Examination - Vital Signs Temperature: 97.8 F Blood Pressure: 132/76 Pulse: 78 Respirations: 18 Pulse Ox (%): 94 - Physical Exam General: Alert, Oriented x3, Mild distress, Obese HEENT: Atraumatic, Normocephalic Neck: Supple, No Thyromegaly Respiratory: Clear to auscultation bilaterally, Normal air movement Cardiovascular: Regular rate/rhythm, Normal S1 S2 Capillary refill: <2 Seconds Gastrointestinal: W/out hepatosplenomegaly, Tenderness Musculoskeletal: No clubbing, No swelling Integumentary: No rashes, No breakdown Neurological: Normal speech, Normal strength at 5/5 x4 extr, Cranial nerves 3-12 intact, Normal reflexes 2+ Lymphatics: No axilla or inguinal lymphadenopathy - Studies Laboratory Data (last 24 hrs) 03/23/24 03/23/24 03/23/24 21:32 21:32 21:32 WBC 10.40 Hgb 15.1 Hct 45.1 Plt Count 239 Sodium 138 Potassium 3.7 BUN 11 Creatinine 0.63 L Glucose 221 H Total Bilirubin 0.7 AST 16 ALT 39 Alkaline Phosphatase 122 H Lipase 35 Assessment and Plan - Plan Terminal ileitis Nonspecific abdominal pain CT findings noted Moderate wall thickening of the terminal ileum and distal ileal loops with moderate perienteric fat stranding. Trace ascites. Findings are consistent with an infectious or inflammatory enteritis. Rule out Crohn's disease. Will start on antibiotics Pain control Patient need follow-up with GI as outpatient for possible colonoscopy to establish the diagnosis Will obtain a CRP level Hyperglycemia Will get an A1c Possible metabolic syndrome Obesity Advise lifestyle modification Sleep apnea On CPAP at home Continue CPAP GI/DVT prophylaxis Advanced directive full code Discharge Plan: Home Plan to discharge in: 48 Hours - Advance Directives Does patient have a Living Will: No Does patient have a Durable POA for Healthcare: No - Code Status/Comfort Care Code Status: Full Code Time Spent Managing Pts Care (In Minutes): 48
[2024-03-24] MEDS ORDERED: HYDROCODONE/APAP 5/325 MG TAB PO PRN (01:32)
[2024-03-24] MEDS ORDERED: MORPHINE 2 MG/ML SYR IV PRN (01:32)
[2024-03-24] MEDS ORDERED: MORPHINE 4 MG/ML SYR ONE ×2 (01:38→06:56)
[2024-03-24] MEDS ORDERED: METHYLPREDNISOLONE 125 MG INJ ONE (01:38)
[2024-03-24] MEDS ORDERED: NA CHLORIDE 0.9% 50 ML ONE (01:38)
[2024-03-24] MEDS ORDERED: METOCLOPRAMIDE 10 MG/2mL INJ ONE (01:38)
[2024-03-24] MEDS ORDERED: CEFTRIAXONE 1000 MG/VIAL ONE (01:38)
[2024-03-24] MEDS: NA CHLORIDE 0.9% 1,000 ML IV SCH (02:00)
[2024-03-24] MEDS: Levofloxacin 750mg IV 750 MG/150 ML BAG IV SCH (02:00)
[2024-03-24] MEDS ORDERED: NA CHLORIDE 0.9% 1,000 ML ONE (03:13)
[2024-03-24] MEDS ORDERED: Levofloxacin 750mg IV 750 MG/150 ML BAG IV ONE (03:14)
[2024-03-24 03:53] VITALS: BMI 43.7
[2024-03-24] MEDS ORDERED: MORPHINE 2 MG/ML SYR ONE (06:56)
[2024-03-24] MEDS ORDERED: FLU (Fluarix Triv) TS24-25(6MOS UP)/PF 45 MCG/0.5 ML Syringe IM ONE (07:45)
[2024-03-24] MEDS ORDERED: D10W 125 ML IV PRN (08:03)
[2024-03-24] MEDS ORDERED: GLUCAGON 1 MG/VIAL IM PRN (08:03)
[2024-03-24] MEDS ORDERED: HYOSCYAMINE SULF 0.125 MG TAB PO PRN (08:05)
[2024-03-24] MEDS ORDERED: MORPHINE 4 MG/ML SYR IV PRN (08:07)
[2024-03-24] MEDS ORDERED: INSULIN GLARGINE 100 UNIT/ML SQ ONE (08:35)
[2024-03-24] MEDS ORDERED: METRONIDAZOLE 500mg IVPB 500 MG/100 ML BAG IV ONE (08:36)
[2024-03-24] MEDS ORDERED: ENOXAPARIN 40 MG/0.4 ML SQ ONE (08:36)
[2024-03-24] MEDS: INSULIN GLARGINE 100 UNIT/ML SQ SCH (08:42)
[2024-03-24] MEDS: METRONIDAZOLE 500mg IVPB 500 MG/100 ML BAG IV SCH (08:42)
[2024-03-24] MEDS: ENOXAPARIN 40 MG/0.4 ML SQ SCH (08:42)
[2024-03-24] MEDS: INSULIN REGULAR (HUMAN) 100 UNIT/ML SQ SCH (11:30)
[2024-03-24 13:15] VITALS: O2SAT 94
--- NOTE | 2024-03-24 13:58 | P.PN ---
Date of Service: 03/24/24 Admission from ED overnight, patient was seen and examined by me in the emergency room This is a 48 years old gentleman with morbid obesity, untreated type 2 diabetes who presented to emergency room for lower abdominal pain for [address] scan of abdomen and pelvis suggestive of terminal ileitis and admitted for #1 nonspecific enteritis No family history or personal history of inflammatory bowel syndrome, symptom already improved on empiric antibiotics of Levaquin and metronidazole and IV fluid, will do oral challenge #2 untreated type 2 diabetes Random blood sugar 221, hemoglobin A1c 10, I will start Lantus 30 unit daily and moderate dose corrective insulin, will start metformin and oral diet 2 or 3 days after IV contrast study
[2024-03-24 16:36] LABS: Specific Gravity > 1.030 (1.005-1.030); Sqamous Epithelial None Seen /HPF (None Seen); Urine Bacteria None Seen /HPF (<20); Urine Bilirubin NEGATIVE (Negative); Urine Blood Negative (Negative); Urine Clarity Clear (Clear); Urine Color Colorless (Yellow); Urine Culture Reflex Order NOT NEEDED; Urine Glucose 4+ (Over) (Negative); Urine Ketones 1+ (Negative); Urine Micro Reflex YN NO BILL MICROSCOPIC; Urine Nitrite NEGATIVE (Negative); Urine Protein NEGATIVE (Negative); Urine RBC <5 /HPF (None Seen); Urine Urobilinogen Normal (Normal); Urine WBC None Seen /HPF (<5); Urine pH 5.5 (5.0-7.0)
[2024-03-24 22:48] VITALS: BP 173/87; TEMP 98.7
--- NOTE | 2024-03-31 18:18 | P.DS ---
Admission Date: 03/24/24 Discharge Date: 03/31/24 Disposition: AMA-LEFT AGAINST MEDICAL ADVIC Discharge Condition: FAIR Reason for Admission: Abdminal Pain , Terminal Ileitis Brief History of Present Illness: 48 yrs old Male with no significant past medical history other than obesity and sleep apnea who was brought to ER with abdominal pain. The pain has been going on for the last 4 days and has been progressively getting worse. Denies any fever or chills. No nausea vomiting or diarrhea. Pain started insidiously. Pain is sharp, 6 out of 10 in severity, radiating to the testicles. No sick contacts. No recent travel. Patient had a history of appendectomy.As the patient continues to have abdominal pain he was brought to ER . Patient was assessed in the ER and had a CT which was suggestive of terminal ileitis and was admitted for further management. Hospital Course: Left AMA Vital Signs/Physical Exam: Temp Pulse Resp BP Pulse Ox 98.7 F 90 16 173/87 H 96 03/24/24 20:00 03/24/24 20:00 03/24/24 20:00 03/24/24 20:00 03/24/24 20:00 General: Alert, In no apparent distress, Oriented x3 HEENT: Atraumatic, Normocephalic Neck: Supple Respiratory: Clear to auscultation bilaterally, Normal air movement Cardiovascular: Regular rate/rhythm, Normal S1 S2 Capillary refill: <2 Seconds Gastrointestinal: Soft and benign, W/out hepatosplenomegaly Musculoskeletal: No clubbing, No swelling Integumentary: No significant lesion, No tenderness/swelling Neurological: Normal speech, Normal strength at 5/5 x4 extr Lymphatics: No axilla or inguinal lymphadenopathy Laboratory Data at Discharge: WBC 10.40 thou/uL (4.3-10.9) 03/23/24 21:32 Hgb 15.1 g/dL (13.6-17.9) 03/23/24 21:32 Hct 45.1 % (39.6-49.0) 03/23/24 21:32 Plt Count 239 thou/uL (152-406) 03/23/24 21:32 Sodium 138 mEq/L (136-145) 03/23/24 21:32 Potassium 3.7 mEq/L (3.5-5.1) 03/23/24 21:32 BUN 11 mg/dL (7-18) 03/23/24 21:32 Creatinine 0.63 mg/dL (0.70-1.30) L 03/23/24 21:32 Glucose 221 mg/dL (74-106) H 03/23/24 21:32 Total Bilirubin 0.7 mg/dL (0.2-1.0) 03/23/24 21:32 AST 16 U/L (15-37) 03/23/24 21:32 ALT 39 U/L (16-61) 03/23/24 21:32 Alkaline Phosphatase 122 U/L (45-117) H 03/23/24 21:32 Lipase 35 U/L (13-75) 03/23/24 21:32 Followup: Nikolai Bell MD [Primary Care Provider] - Time spent managing pt's care (in minutes): 45
== END 2024-03-24 20:17 | disposition left against medical advice (07) | DRG 386 ==
LOC: ER 20:08 → ERHOLD 03-24 01:27 → 2ND 03-24 11:04
PROVIDERS: ADMIT Family Medicine; ATTEND Internal Medicine
DX: K50.00 Crohn's disease of small intestine without complications (principal); Z68.41 Body mass index [BMI] 40.0-44.9, adult; E66.01 Morbid (severe) obesity due to excess calories; E11.65 Type 2 diabetes mellitus with hyperglycemia; G47.30 Sleep apnea, unspecified; E88.810 Metabolic syndrome; K52.9 Noninfective gastroenteritis and colitis, unspecified; F17.210 Nicotine dependence, cigarettes, uncomplicated; Z88.0 Allergy status to penicillin; Z90.49 Acquired absence of other specified parts of digestive tract; Z53.29 Procedure and treatment not carried out because of patient's decision for other reasons; Z99.89 Dependence on other enabling machines and devices
CPT/HCPCS: 36415; 71260; 74177; 80053; 81001; 82947; 83036; 83690; 83880; 84484; 85025; 86140; 96361; 96365; 96368; 96375; 99284; G0378; J0696; J1650; J2270; J2405; J2765; J2919; J7030; Q9967